=== PATIENT | male | born 2000 | race Caucasian/White ===

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

== ENCOUNTER 2023-08-04 18:18 | Emergency (ER) | payer OTHER ==
[~2023-08-04] VITALS: Ht 180.3 cm; Wt 65.8 kg
[~2023-08-04 18:18] MED LIST changes: +MUPIROCIN1 G1 TOP; +NAPR500 PO; +ONDA4 PO; +Seroquel Xr50 MG PO
[2023-08-04] MEDS ORDERED: NARCAN4 M1 (21:55)
[2023-08-05 01:00] VITALS: BP 130/75
== END 2023-08-05 01:51 | disposition home or self-care (01) ==
LOC: ER 18:18
DX: T40.411A Poisoning by fentanyl or fentanyl analogs, accidental (unintentional), initial encounter (principal); R40.4 Transient alteration of awareness; F15.90 Other stimulant use, unspecified, uncomplicated; Z79.899 Other long term (current) drug therapy
CPT/HCPCS: 82947; 99284; A9270